=== PATIENT | female | born 1960 | race Caucasian/White ===

== ENCOUNTER 2022-04-05 15:35 | Emergency (ER) | payer OTHER ==
[2022-04-05 17:14] LABS: Absolute Neutrophil Ct (ANC) 3.79 x10^3/uL (1.4-6.9); Basophil (Absolute #) 0.03 x10^3/uL (0-0.4); Eosinophil % 1.2 % (0.00-5.0); Eosinophil (Absolute #) 0.08 x10^3/uL (0-0.5); Hematocrit 43.1 % (35-47); Hemoglobin 14.8 g/dL (12.0-16.0); Lymphocyte (Absolute #) 2.15 x10^3/uL (1.0-4.6); Lymphocytes % 32.3 % (24.0-44.0); Mean Cell Volume 95.6 fL (78-100); Mean Corpuscular Hemoglobin 32.8 pg (26-32); Mean Corpuscular Hgb Concent. 34.3 g/dL (32-36); Mean Platelet Volume 9.2 fL (7.5-11.0); Monocyte (Absolute #) 0.59 x10^3/uL (0.0-1.3); Monocytes % 8.9 % (0.0-12.0); Neutrophil % 56.8 % (36.0-66.0); Platelet Count 325 x10^3/uL (150-450); Red Blood Count 4.51 x10^6/uL (4.1-5.4); Red Cell Distribution Width 12.7 % (11.5-14.0); White Blood Count 6.7 x10^3/uL (4.0-10.5)
[2022-04-05 17:19] LABS: ALKALINE PHOSPHATASE 128 U/L (38-126); ANION GAP 12.3 MEQ/L (5-15); BLOOD UREA NITROGEN 11 mg/dL (7-17); CHLORIDE 105 mmol/L (98-107); Calcium 9.8 mg/dL (8.4-10.2); Carbon Dioxide 27 mmol/L (22-30); Creatinine 1 0.85 mg/dL (0.52-1.04); EST GLOMERULAR FILTRATION RATE > 60.0 ML/MIN; Glucose 90 mg/dL (74-106); LIPASE 231 U/L (23-300); Potassium 3.8 mmol/L (3.5-5.1); SGOT/AST 53 U/L (14-36); SGPT/ALT 64 U/L (0-35); SODIUM 140 mmol/L (137-145); Total Protein 8.6 g/dL (6.3-8.2)
[2022-04-05 17:25] LABS: Bacteria RARE /HPF (NEGATIVE); Epithelial Cells RARE /HPF (FEW); RBC 0-2 /HPF (0-2); WBC 0-2 /HPF (0-5)
[2022-04-05 17:26] LABS: Appearance CLEAR (CLEAR); Bilirubin NEGATIVE (NEGATIVE); Glucose NEGATIVE (NEGATIVE); Ketones NEGATIVE (NEGATIVE); Nitrite NEGATIVE (NEGATIVE); Ph 5.5 (5-6); Protein,Urine Dip NEGATIVE (Negative); RBC NEGATIVE Ery/ul (0-5); Specific Gravity 1.015 (1.005-1.025); Urobilinogen 0.2 mg/dL (0-1)
[2022-04-05 17:27] LABS: Dipstick done @ ? MAIN LAB; Urine Cultured Indicated? NO
[2022-04-05 18:11] VITALS: BP 149/73; O2SAT 95
--- NOTE | 2022-04-05 20:09 | ERPHSYRPT ---
- History of Present Illness Time Seen by Provider: 04/05/22 15:41 Historian: patient Exam Limitations: no limitations Patient Subjective Stated Complaint: Abdominal pain Triage Nursing Assessment: Patient ambulated back to ED and transferred self to bed. Patient A+OX .3 Patient's skin pink ,warm and dry. Patient complains of abdominal pain since yesterday. 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 Patient states she can feel a protrusion by belly button. Patient complains of nasuea at times. 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 She also noticed some swelling which comes and goes. Mild to moderate pain with palpation. No nausea vomiting or diarrhea reported. Timing/Duration: yesterday, intermittent, sudden, improved Activities at Onset: activity Quality: burning Abdominal Pain Onset Location: periumbilical Pain Radiation: no radiation Severity of Pain-Max: moderate Severity of Pain-Current: none Modifying Factors: Worsens With: movement, palpation Associated Symptoms: denies symptoms Previous symptoms: no prior history Allergies/Adverse Reactions: No Known Drug Allergies Allergy (Unverified 04/05/22 16:30) Home Medications: No Reportable Medications [No Reported Medications] 04/05/22 [History] Hx Influenza Vaccination/Date Given: No Hx Pneumococcal Vaccination/Date Given: No Immunizations Up to Date: Yes Travel Risk - International Travel Have you traveled outside of the country in past 3 weeks: No - Coronavirus Screening Are you exhibiting any of the following symptoms?: No Close contact with a COVID-19 positive Pt in past 14-21 Days: No - Vaccine Status Have you recieved a Covid-19 vaccination: No - Review of Systems Constitutional: No Symptoms Eyes: No Symptoms Ears, Nose, & Throat: No Symptoms Respiratory: No Symptoms Cardiac: No Symptoms Abdominal/Gastrointestinal: Abdominal Pain Genitourinary Symptoms: No Symptoms Musculoskeletal: No Symptoms Skin: No Symptoms Neurological: No Symptoms Psychological: No Symptoms Endocrine: No Symptoms Hematologic/Lymphatic: No Symptoms Immunological/Allergic: No Symptoms - Past Medical History Pertinent Past Medical History: No Neurological History: No Pertinent History ENT History: No Pertinent History Cardiac History: No Pertinent History Respiratory History: No Pertinent History Endocrine Medical History: No Pertinent History Musculoskeletal History: No Pertinent History, Fibromyalgia GI Medical History: No Pertinent History History: No Pertinent History Female Reproductive Disorders: No Pertinent History - Past Surgical History Past Surgical History: Yes Neuro Surgical History: No Pertinent History Cardiac: No Pertinent History Respiratory: No Pertinent History Gastrointestinal: No Pertinent History Genitourinary: No Pertinent History Musculoskeletal: No Pertinent History Female Surgical History: Hysterectomy - Social History Smoking Status: Never smoker Exposure to second hand smoke: No Drug Use: none Patient Lives Alone: No - Nursing Vital Signs Nursing Vital Signs: Initial Vital Signs Temperature 97.6 F 04/05/22 16:33 Pulse Rate 81 04/05/22 16:33 Respiratory Rate 18 04/05/22 16:33 Blood Pressure 119/73 04/05/22 16:33 O2 Sat by Pulse Oximetry 98 04/05/22 16:33 Pain Scale Pain Intensity 0 - Physical Exam General Appearance: no apparent distress, alert Eye Exam: PERRL/EOMI Ears, Nose, Throat Exam: normal ENT inspection Neck Exam: normal inspection, full range of motion Respiratory Exam: normal breath sounds, lungs clear Cardiovascular Exam: regular rate/rhythm, normal heart sounds Gastrointestinal/Abdomen Exam: soft, normal bowel sounds, No tenderness, No guarding Back Exam: normal inspection, normal range of motion Extremity Exam: normal inspection, normal range of motion Neurologic Exam: alert, oriented x 3, cooperative, normal mood/affect Skin Exam: normal color SpO2 Interpretation: normal SpO2: 95 O2 Delivery: Room Air Ordered Tests: Active Orders 24 hr Category Date Time Status ABDOMEN AND PELVIS W/0 CONTRAS [CT] Stat Exams 04/05/22 16:48 Taken CBC W DIFF Stat Lab 04/05/22 17:00 Completed CMP Stat Lab 04/05/22 17:00 Completed LIPASE Stat Lab 04/05/22 17:00 Completed UA W/RFX CULTURE Stat Lab 04/05/22 16:49 Completed Lab/Rad Data: Laboratory Result Diagrams 04/05/22 17:00 04/05/22 17:00 Laboratory Results 04/05/22 04/05/22 04/05/22 Range/Units 17:00 17:00 16:49 WBC 6.7 (4.0-10.5) x10^3/uL RBC 4.51 (4.1-5.4) x10^6/uL Hgb 14.8 (12.0-16.0) g/dL Hct 43.1 (35-47) % MCV 95.6 (78-100) fL MCH 32.8 H (26-32) pg MCHC 34.3 (32-36) g/dL RDW 12.7 (11.5-14.0) % Plt Count 325 (150-450) x10^3/uL MPV 9.2 (7.5-11.0) fL Gran % 56.8 (36.0-66.0) % Immature Gran % (Auto) 0.3 (0.00-0.4) % Nucleat RBC Rel Count 0.0 (0.00-0.1) % Eos # (Auto) 0.08 (0-0.5) x10^3/uL Immature Gran # (Auto) 0.02 (0.00-0.03) x10^3u/L Absolute Lymphs (auto) 2.15 (1.0-4.6) x10^3/uL Absolute Monos (auto) 0.59 (0.0-1.3) x10^3/uL Absolute Nucleated RBC 0.00 (0.00-0.01) x10^3u/L Lymphocytes % 32.3 (24.0-44.0) % Monocytes % 8.9 (0.0-12.0) % Eosinophils % 1.2 (0.00-5.0) % Basophils % 0.5 (0.0-0.4) % Absolute Granulocytes 3.79 (1.4-6.9) x10^3/uL Basophils # 0.03 (0-0.4) x10^3/uL Sodium 140 (137-145) mmol/L Potassium 3.8 (3.5-5.1) mmol/L Chloride 105 (98-107) mmol/L Carbon Dioxide 27 (22-30) mmol/L Anion Gap 12.3 (5-15) MEQ/L BUN 11 (7-17) mg/dL Creatinine 0.85 (0.52-1.04) mg/dL Estimated GFR > 60.0 ML/MIN Glucose 90 (74-106) mg/dL Calcium 9.8 (8.4-10.2) mg/dL Total Bilirubin 0.60 (0.2-1.3) mg/dL AST 53 H (14-36) U/L ALT 64 H (0-35) U/L Alkaline Phosphatase 128 H (38-126) U/L Serum Total Protein 8.6 H (6.3-8.2) g/dL Albumin 5.0 (3.5-5.0) g/dL Lipase 231 (23-300) U/L Urinalys Dipstick Clnc MAIN LAB Urine Color YELLOW (YELLOW) Urine Appearance CLEAR (CLEAR) Urine pH 5.5 (5-6) Ur Specific [place] 1.015 (1.005-1.025) POC Urine Protein Conf NEGATIVE (Negative) Urine Ketones NEGATIVE (NEGATIVE) Urine Nitrite NEGATIVE (NEGATIVE) Urine Bilirubin NEGATIVE (NEGATIVE) Urine Urobilinogen 0.2 (0-1) mg/dL Urine Leukocytes NEGATIVE (NEGATIVE) Urine WBC (Auto) 0-2 (0-5) /HPF Urine RBC (Auto) 0-2 (0-2) /HPF U Epithel Cells (Auto) RARE (FEW) /HPF Urine Bacteria (Auto) RARE (NEGATIVE) /HPF Urine RBC NEGATIVE (0-5) Guillermo/ul Ur Culture Indicated? NO Urine Glucose NEGATIVE (NEGATIVE) mg/dL - Progress Progress: unchanged, re-examined Progress Note: 04/05/22 20:07 Symptoms remain pretty much asymptomatic and did not want any pain medication. Has unremarkable lab work for acute abdomen and CT did show fat-containing small ventral wall hernia. Recommended outpatient follow-up. Recommended avoiding exertional work, heavy lifting. Discussed signs symptoms of worsening needing return to ER which she seems understanding. Counseled pt/family regarding: lab results, diagnosis, need for follow-up, rad results - Departure Departure Disposition: Home Clinical Impression: Ventral hernia Condition: Stable Critical Care Time: No Referrals: DOCTOR,NO FAMILY [Primary Care Provider] - Follow up/PCP as directed MANSI EM MD [ACTIVE STAFF] - Follow up/PCP as directed (Call early next week for appointment for reevaluation) Instructions: Severe Abdominal Pain, Adult (DC), Abdominal Hernia (DC) Additional Instructions: Avoid lifting heavy objects. Use abdominal brace. Follow-up with general surgery for reevaluation. Return to ER for any worsening. Take Tylenol/ibuprofen as needed.
[2022-04-05 20:20] VITALS: PULSE 72
--- NOTE | 2022-04-05 22:19 | XRAY ---
Indication: Periumbilical pain/burning. Nausea. Multiple contiguous axial images obtained through the abdomen and pelvis without contrast. Comparison: None Lung bases demonstrates 3 mm right lower lobe noncalcified nodule. No infiltrate or effusion. Heart not enlarged. Noncontrasted stomach and bowel loops appear nonobstructed with normal appendix and mild diffuse scattered colonic diverticulosis. Previous hysterectomy. No free fluid/air. Diffuse fatty liver. Remaining liver, gallbladder, pancreas, spleen, adrenal glands, kidneys, ureters, and bladder are unremarkable for noncontrast exam. Mild aortic calcifications without AAA. Osseous structures intact with mild degenerative changes throughout the spine and both hips. Small supraumbilical fatty ventral hernia left of midline. Impression: 1. Indeterminant 3 mm right lower lobe noncalcified nodule. 2. Small fatty ventral hernia, diffuse fatty liver, and colonic diverticulosis. 3. Remaining CT abdomen/pelvis without contrast exam is negative. Comment: Preliminary interpretation made by C. No critical discrepancy.
== END 2022-04-05 20:21 | disposition home or self-care (01) ==
LOC: ED 15:35
DX: K43.9 Ventral hernia without obstruction or gangrene (principal); R10.33 Periumbilical pain; Z28.310 Unvaccinated for COVID-19
CPT/HCPCS: 36415; 74176; 80053; 81015; 83690; 85025; 99283; L0625

== ENCOUNTER 2023-10-25 22:47 | Emergency (ER) | payer OTHER ==
[2023-10-25 22:58] VITALS: TEMP 98.2
--- NOTE | 2023-10-25 23:00 | ERPHSYRPT ---
- History of Present Illness Time Seen by Provider: 10/25/23 22:55 Historian: patient Physician History: 62yo f presents to ED by private vehicle for cp that started 1h [employer] while at rest. Pt states the pain is retrosternal, non-radiating, burning. Pt states she has been having worsening acid reflux sx for the past week, is not sure if this is the same type of pain, does endorse eating at [facility] for dinner. Pt denies any diaphoresis, n/v, blurry vision, SAUCEDO, sob, numbness/tingling in UEs, pain in her neck/jaw. Pt denies significant cardiac hx. Timing/Duration: today Activities at Onset: none Quality: burning Location: substernal Chest Pain Radiation: no radiation Severity of Pain-Max: moderate Severity of Pain-Current: none Modifying Factors: Improves With: antacids Associated Symptoms: denies symptoms Prior Chest Pain/Cardiac Workup: no prior chest pain, no prior cardiac workup Nitro Today/Relief: no nitro taken today Aspirin Treatment Today: no aspirin today Allergies/Adverse Reactions: No Known Drug Allergies Allergy (Verified 10/25/23 23:09) Home Medications: No Reportable Medications [No Reported Medications] 04/05/22 [History] Hx Influenza Vaccination/Date Given: No Hx Pneumococcal Vaccination/Date Given: No - Review of Systems Constitutional: No Symptoms Respiratory: No Symptoms Cardiac: Chest Pain, No Edema, No Palpitations, No Syncope Abdominal/Gastrointestinal: No Abdominal Pain, No Nausea, No Vomiting, No Diarrhea - Past Medical History Pertinent Past Medical History: No Neurological History: No Pertinent History ENT History: No Pertinent History Cardiac History: No Pertinent History Respiratory History: No Pertinent History Endocrine Medical History: No Pertinent History Musculoskeletal History: No Pertinent History, Fibromyalgia GI Medical History: No Pertinent History History: No Pertinent History Female Reproductive Disorders: No Pertinent History - Past Surgical History Past Surgical History: Yes Neuro Surgical History: No Pertinent History Cardiac: No Pertinent History Respiratory: No Pertinent History Gastrointestinal: No Pertinent History Genitourinary: No Pertinent History Musculoskeletal: No Pertinent History Female Surgical History: Hysterectomy - Social History Smoking Status: Never smoker Exposure to second hand smoke: No Drug Use: none Patient Lives Alone: No - Nursing Vital Signs Nursing Vital Signs: Initial Vital Signs Temperature 98.2 F 10/25/23 22:48 Pulse Rate 94 H 10/25/23 22:48 Respiratory Rate 20 10/25/23 22:48 Blood Pressure 197/98 10/25/23 22:48 O2 Sat by Pulse Oximetry 100 10/25/23 22:48 Pain Scale Pain Intensity 0 - Physical Exam General Appearance: no apparent distress Respiratory Exam: normal breath sounds, lungs clear, airway intact, No chest tenderness, No respiratory distress, No diminished breath sounds, No accessory muscle use, No rhonchi Cardiovascular Exam: regular rate/rhythm, normal heart sounds, normal peripheral pulses Gastrointestinal/Abdomen Exam: soft, normal bowel sounds, No tenderness, No distention SpO2 Interpretation: normal SpO2: 100 O2 Delivery: Room Air - Course EKG Interpreted by Me: RATE (108), Sinus Tach, Other (qtcb 494, no ST changes, not suggestive of ischemia) Ordered Tests: Active Orders 24 hr Category Date Time Status CHEST 1 VIEW (PORTABLE) Stat Exams 10/25/23 22:57 Taken CBC W DIFF Stat Lab 10/25/23 23:20 Completed CMP Stat Lab 10/25/23 23:20 Completed TROPONIN Q4H Lab 10/25/23 23:20 Completed TROPONIN Stat Lab 10/26/23 01:38 Completed Medication Summary Discontinued Medications Generic Name Dose Route Start Last Admin Trade Name Freq PRN Reason Stop Dose Admin Famotidine 20 mg 10/25/23 23:03 10/25/23 23:09 Famotidine 20 Mg/1 Vial IV 10/25/23 23:04 20 mg STAT ONE Administration Famotidine Confirm 10/25/23 23:08 Famotidine 20 Mg/1 Vial Administered 10/25/23 23:09 Dose 20 mg IV .Limk-Clerts! ONE Lab/Rad Data: Laboratory Result Diagrams 10/25/23 23:20 10/25/23 23:20 Laboratory Results 10/26/23 10/25/23 10/25/23 Range/Units 01:38 23:20 23:20 WBC (4.0-10.5) x10^3/uL RBC (4.1-5.4) x10^6/uL Hgb (12.0-16.0) g/dL Hct (35-47) % MCV (78-100) fL MCH (26-32) pg MCHC (32-36) g/dL RDW (11.5-14.0) % Plt Count (150-450) x10^3/uL MPV (7.5-11.0) fL Gran % (36.0-66.0) % Immature Gran % (Auto) (0.00-0.4) % Nucleat RBC Rel Count (0.00-0.1) % Eos # (Auto) (0-0.5) x10^3/uL Immature Gran # (Auto) (0.00-0.03) x10^3u/L Absolute Lymphs (auto) (1.0-4.6) x10^3/uL Absolute Monos (auto) (0.0-1.3) x10^3/uL Absolute Nucleated RBC (0.00-0.01) x10^3u/L Lymphocytes % (24.0-44.0) % Monocytes % (0.0-12.0) % Eosinophils % (0.00-5.0) % Basophils % (0.0-0.4) % Absolute Granulocytes (1.4-6.9) x10^3/uL Basophils # (0-0.4) x10^3/uL Sodium 141 (135-145) mmol/L Potassium 3.7 (3.5-5.1) mmol/L Chloride 105 (98-107) mmol/L Carbon Dioxide 26 (22-30) mmol/L Anion Gap 14.3 (5-15) MEQ/L BUN 18 H (7-17) mg/dL Creatinine 0.83 (0.52-1.04) mg/dL Estimated GFR 80.2 ML/MIN Glucose 128 H (74-106) mg/dL Calcium 9.8 (8.4-10.2) mg/dL Total Bilirubin 0.40 (0.2-1.3) mg/dL AST 53 H (14-36) U/L ALT 69 H (0-35) U/L Alkaline Phosphatase 142 H (38-126) U/L Troponin I < 0.012 < 0.012 (0.000-0.034) ng/mL Serum Total Protein 8.3 H (6.3-8.2) g/dL Albumin 4.6 (3.5-5.0) g/dL 03//24 Range/Units 23:20 WBC 7.8 (4.0-10.5) x10^3/uL RBC 4.72 (4.1-5.4) x10^6/uL Hgb 15.2 (12.0-16.0) g/dL Hct 45.5 (35-47) % MCV 96.4 (78-100) fL MCH 32.2 H (26-32) pg MCHC 33.4 (32-36) g/dL RDW 12.5 (11.5-14.0) % Plt Count 332 (150-450) x10^3/uL MPV 9.6 (7.5-11.0) fL Gran % 47.8 (36.0-66.0) % Immature Gran % (Auto) 0.3 (0.00-0.4) % Nucleat RBC Rel Count 0.0 (0.00-0.1) % Eos # (Auto) 0.15 (0-0.5) x10^3/uL Immature Gran # (Auto) 0.02 (0.00-0.03) x10^3u/L Absolute Lymphs (auto) 3.09 (1.0-4.6) x10^3/uL Absolute Monos (auto) 0.80 (0.0-1.3) x10^3/uL Absolute Nucleated RBC 0.00 (0.00-0.01) x10^3u/L Lymphocytes % 39.5 (24.0-44.0) % Monocytes % 10.2 (0.0-12.0) % Eosinophils % 1.9 (0.00-5.0) % Basophils % 0.3 (0.0-0.4) % Absolute Granulocytes 3.74 (1.4-6.9) x10^3/uL Basophils # 0.02 (0-0.4) x10^3/uL Sodium (135-145) mmol/L Potassium (3.5-5.1) mmol/L Chloride (98-107) mmol/L Carbon Dioxide (22-30) mmol/L Anion Gap (5-15) MEQ/L BUN (7-17) mg/dL Creatinine (0.52-1.04) mg/dL Estimated GFR ML/MIN Glucose (74-106) mg/dL Calcium (8.4-10.2) mg/dL Total Bilirubin (0.2-1.3) mg/dL AST (14-36) U/L ALT (0-35) U/L Alkaline Phosphatase (38-126) U/L Troponin I (0.000-0.034) ng/mL Serum Total Protein (6.3-8.2) g/dL Albumin (3.5-5.0) g/dL - Progress Progress: improved Air Movement: good Progress Note: 10/26/23 00:25 pain nearly totally resolved at presentation to ED pt given famotidine 20mg IV - reports significant improvement, reports she has been belching frequently that eases sx trops wnl liver enzymes mildly elevated labs otherwise largely unremarkable 10/26/23 02:34 troponin negative x2 sx completely resolved w/ famotidine chest/epigastric discomfort likely 2/2 GERD plan for dc home w/ PCP f/u Heart score: 1 follow up w/ PCP Dr Chris this week discussed use of OTC antacids, I recommend pepcid 20mg, but should discuss this w/ pcp return to ED if: chest pain develops and does not resolve w/ antacids, develop bloody vomiting or diarrhea, develop shortness of breath, vision changes 10/26/23 02:37 Blood Culture(s) Obtained: No Antibiotics given: No Counseled pt/family regarding: lab results, diagnosis, need for follow-up Medical Desision Making - Risk of complications Minimal Risk: Minimal risk of morbidity - Departure Departure Disposition: Home Clinical Impression: Elevated liver enzymes GERD (gastroesophageal reflux disease) Qualifiers: Esophagitis presence: esophagitis presence not specified Qualified Code(s): K21.9 - Gastro-esophageal reflux disease without esophagitis Condition: Stable Critical Care Time: No Referrals: JAVI RUBY MD [Primary Care Provider] - Follow up/PCP as directed Additional Instructions: follow up w/ PCP Dr Chris this week avoid spicy/fatty foods discussed use of OTC antacids, I recommend pepcid 20mg, but should discuss this w/ pcp return to ED if: chest pain develops and does not resolve w/ antacids, develop bloody vomiting or diarrhea, develop shortness of breath, vision changes
[2023-10-25] MEDS ORDERED: Pepcid 20 MG VIAL IV ONE (23:08)
[2023-10-25] MEDS: Pepcid 20 MG VIAL IV ONE (23:09)
[2023-10-25 23:24] LABS: Absolute Neutrophil Ct (ANC) 3.74 x10^3/uL (1.4-6.9); BASOPHIL % 0.3 % (0.0-0.4); Basophil (Absolute #) 0.02 x10^3/uL (0-0.4); Eosinophil % 1.9 % (0.00-5.0); Eosinophil (Absolute #) 0.15 x10^3/uL (0-0.5); Hematocrit 45.5 % (35-47); Hemoglobin 15.2 g/dL (12.0-16.0); IMMATURE GRAN # 0.02 x10^3u/L (0.00-0.03); IMMATURE GRAN % 0.3 % (0.00-0.4); Lymphocyte (Absolute #) 3.09 x10^3/uL (1.0-4.6); Lymphocytes % 39.5 % (24.0-44.0); Mean Cell Volume 96.4 fL (78-100); Mean Corpuscular Hemoglobin 32.2 pg (26-32); Mean Corpuscular Hgb Concent. 33.4 g/dL (32-36); Mean Platelet Volume 9.6 fL (7.5-11.0); Monocytes % 10.2 % (0.0-12.0); Neutrophil % 47.8 % (36.0-66.0); Platelet Count 332 x10^3/uL (150-450); Red Blood Count 4.72 x10^6/uL (4.1-5.4); Red Cell Distribution Width 12.5 % (11.5-14.0); White Blood Count 7.8 x10^3/uL (4.0-10.5)
[2023-10-25 23:36] LABS: ALBUMIN 4.6 g/dL (3.5-5.0); ANION GAP 14.3 MEQ/L (5-15); BILIRUBIN,TOTAL 0.4 mg/dL (0.2-1.3); Calcium 9.8 mg/dL (8.4-10.2); Creatinine 1 0.83 mg/dL (0.52-1.04); EST GLOMERULAR FILTRATION RATE 80.2 ML/MIN; Potassium 3.7 mmol/L (3.5-5.1); Total Protein 8.3 g/dL (6.3-8.2)
[2023-10-26 02:34] VITALS: BP 144/78; PULSE 77; RESP 20
[2023-10-26 02:39] VITALS: O2SAT 100
--- NOTE | 2023-10-26 08:53 | XRAY ---
Indication: Chest pain. Comparison: None Portable chest slightly underinflated without focal infiltrate, consolidation, or large effusion. Heart not enlarged. Bony thorax intact with mild degenerative changes.
== END 2023-10-26 02:51 | disposition home or self-care (01) ==
LOC: ED 22:47
DX: K21.9 Gastro-esophageal reflux disease without esophagitis (principal); R74.8 Abnormal levels of other serum enzymes; R07.9 Chest pain, unspecified
CPT/HCPCS: 36000; 36415; 71045; 80053; 84484; 85025; 96374; 99284